=== PATIENT | male | born 1955 | race Caucasian/White ===

== ENCOUNTER → 2020-10-10 | Outpatient (CLI) | payer OTHER ==
[~2020-10-10] MED LIST: ALLOPURINOL100 MG PO; ALLOPURINOL300 MG PO; AMITRIPTYLINE H50 MG PO; ANORO ELLIPTA1 EACH INH; APRISO0.375 GM PO; ASPIR 8181 MG PO; AUGMENTIN 875-1 EACH PO; CARAFATE1 GM PO; CETIRIZINE HCL10 MG PO; COZAAR25 MG PO; ELAVIL 50 MG TA50 MG PO; ELIQUIS 5 MG TAB5 MG PO; FAMOTIDINE40 MG PO; GARLIC OIL1000 MG PO; GARLIC1000 MG PO; KETOROLAC TROME10 MG PO; LEVOTHYROXINE25 MC1 PO; LORATADINE10 MG PO; LOSARTAN POTASS25 MG PO; MELATONIN10 M2 PO; MELATONIN10 MG PO; MESALAMINE E0.375 GM PO; MESALAMINE4 GM/60 ML PR; PANTOPRAZOLE SO40 MG PO; PAROXETINE HCL20 MG PO; PAXIL20 MG PO; PREDNISONE 20 M20 MG PO; PROTONIX40 MG PO; RANITIDINE HCL150 M1 PO; RANITIDINE HCL150 MG PO; REQUIP1 MG PO; ROPINIROLE HCL1 MG PO; SIMVASTATIN20 MG PO; TRELEGY ELLIPT1 EACH INH; TRELEGY INH; VANCOMYCIN HCL125 MG PO; VENTOLIN HFA 66.7 GM INH; VICTOZA 1818 MG/3 ML SQ; VIT D3 PO; VITAMIN D32000 UNIT PO; VITAMIN E1000 UNI1 PO; ZITHROMAX250 MG PO; ZOCOR20 MG PO; ZYLOPRIM 100 M100 MG PO
[2020-10-11 10:13] LABS: HBSAG SCREEN Negative (Negative); HEP A AB, IGM Negative (Negative); HEP B CORE AB, IGM Negative (Negative); HEP C VIRUS AB <0.1 (0.0-0.9)
[2020-10-13 14:13] LABS: QUANTIFERON MITOGEN VALUE >10.00 IU/mL (.); QUANTIFERON TB1 AG VALUE 0.13 IU/mL (.); QUANTIFERON TB2 AG VALUE 0.09 IU/mL (.); QUANTIFERON-TB GOLD PLUS Negative (Negative)
== END ==
LOC: LAB 14:19
PROVIDERS: Internal Medicine Gastroenterology
DX: K51.30 Ulcerative (chronic) rectosigmoiditis without complications (principal); R94.5 Abnormal results of liver function studies
CPT/HCPCS: 80074

== ENCOUNTER 2020-10-19 15:45 | Inpatient (IN) | payer OTHER ==
[~2020-10-19] VITALS: Ht 170.2 cm; Wt 117.9 kg
[~2020-10-19 15:45] MED LIST changes: -AUGMENTIN 875-1 EACH PO; -ELIQUIS 5 MG TAB5 MG PO; -PREDNISONE 20 M20 MG PO; -TRELEGY ELLIPT1 EACH INH; -VANCOMYCIN HCL125 MG PO
[2020-10-19 17:38] LABS: HEMOGLOBIN 14.6 gm/dl (14.0-17.5); RED BLOOD COUNT 4.74 M/UL (4.20-5.50); WHITE BLOOD COUNT 21.7 K/UL (4.5-11.0)
[2020-10-19 18:02] LABS: BUN/CREATININE RATIO 13 (0-10)
[2020-10-20] MEDS ORDERED: TRELEGY ELLIPT1 EACH INH (00:05)
[2020-10-20] MEDS ORDERED: VENTOLIN HFA 66.7 GM INH (00:06)
[2020-10-20] MEDS ORDERED: ROPINIROLE HCL1 MG PO (00:58)
[2020-10-20 03:00] LABS: BORDETELLA PARAPERTUSSIS Not Detected (Not Detectd); BORDETELLA PERTUSSIS Not Detected (Not Detectd); CHLAMYDIA PNEUMONIAE Not Detected (Not Detectd); CORONAVIRUS HKU1 Not Detected (Not Detectd); CORONAVIRUS NL63 Not Detected (Not Detectd); CORONAVIRUS OC43 Not Detected (Not Detectd); CORONOAVIRUS 229E Not Detected (Not Detectd); HUMAN METAPNEUMOVIRUS Not Detected (Not Detectd); HUMAN RHINOVIRUS/ENTEROVIRUS Not Detected (Not Detectd); INFLUENZA A Not Detected (Not Detectd); INFLUENZA B Not Detected (Not Detectd); MYCOPLASMA PNEUMONIAE Not Detected (Not Detectd); PARAINFLUENZA VIRUS 1 Not Detected (Not Detectd); PARAINFLUENZA VIRUS 2 Not Detected (Not Detectd); PARAINFLUENZA VIRUS 3 Not Detected (Not Detectd); PARAINFLUENZA VIRUS 4 Not Detected (Not Detectd); RESPIRATORY SYNCYTIAL VIRUS Not Detected (Not Detectd)
[2020-10-20 04:01] LABS: SARS-CoV-2 NOT DETECTED (Not Detectd)
[2020-10-20 05:58] LABS: HEMOGLOBIN 12.3 gm/dl (14.0-17.5); RED BLOOD COUNT 4.12 M/UL (4.20-5.50); WHITE BLOOD COUNT 15.7 K/UL (4.5-11.0)
[2020-10-20 06:11] LABS: BUN/CREATININE RATIO 14 (0-10)
[2020-10-20] MEDS ORDERED: AUGMENTIN 875-1 EACH PO (12:14)
== END 2020-10-20 14:16 | disposition home or self-care (01) | DRG 862 ==
LOC: ER1 15:45 → CDU 21:10 → MED SURG 4 22:50
PROVIDERS: Physician Assistant Medical; ADMIT Internal Medicine
PROC: 0DBG8ZX Excision of Left Large Intestine, Via Natural or Artificial Opening Endoscopic, Diagnostic (ICD-10-PCS; principal; 2020-10-19)
PROC: 0DBF8ZX Excision of Right Large Intestine, Via Natural or Artificial Opening Endoscopic, Diagnostic (ICD-10-PCS; 2020-10-19)
DX: T81.44XA Sepsis following a procedure, initial encounter (principal); A41.9 Sepsis, unspecified organism; J69.0 Pneumonitis due to inhalation of food and vomit; J96.01 Acute respiratory failure with hypoxia; K51.30 Ulcerative (chronic) rectosigmoiditis without complications; Z68.41 Body mass index [BMI] 40.0-44.9, adult; Z20.822 Contact with and (suspected) exposure to COVID-19; J44.9 Chronic obstructive pulmonary disease, unspecified; K52.9 Noninfective gastroenteritis and colitis, unspecified; E66.01 Morbid (severe) obesity due to excess calories; G56.00 Carpal tunnel syndrome, unspecified upper limb; I10 Essential (primary) hypertension; M10.9 Gout, unspecified; E78.5 Hyperlipidemia, unspecified; N28.1 Cyst of kidney, acquired; Z98.52 Vasectomy status; Z80.1 Family history of malignant neoplasm of trachea, bronchus and lung; Z80.8 Family history of malignant neoplasm of other organs or systems; Z83.3 Family history of diabetes mellitus; Z87.442 Personal history of urinary calculi; Z87.891 Personal history of nicotine dependence; Z79.890 Hormone replacement therapy; Z79.899 Other long term (current) drug therapy; I25.2 Old myocardial infarction
CPT/HCPCS: 36415; 71045; 80048; 80053; 82550; 82553; 83605; 83690; 83874; 83880; 84484; 85025; 85379; 87040; 87633; 93005; 94640; 94664; 94760; 96365; 96372; 99285; G0378; J0456; J0696; J1650; J2920; J7030; J7040; Q9967; U0002; U0003

== ENCOUNTER → 2020-10-19 | Day surgery (SDC) | payer OTHER | END | disposition home or self-care (01) | LOC: OR 07:03 | DX: Z53.9 Procedure and treatment not carried out, unspecified reason (principal) | CPT/HCPCS: J7040 ==

== ENCOUNTER → 2020-11-22 | Outpatient (CLI) | payer OTHER ==
[~2020-11-22] MED LIST changes: +AUGMENTIN 875-1 EACH PO; +ELIQUIS 5 MG TAB5 MG PO; +PREDNISONE 20 M20 MG PO; +TRELEGY ELLIPT1 EACH INH; +VANCOMYCIN HCL125 MG PO
== END ==
LOC: RAD 11:21
DX: J18.9 Pneumonia, unspecified organism (principal)
CPT/HCPCS: 71046

== ENCOUNTER 2020-12-21 12:25 | Inpatient (IN) | payer OTHER ==
[~2020-12-21] VITALS: Ht 170.2 cm; Wt 113.6 kg
[~2020-12-21 12:25] MED LIST changes: -ELIQUIS 5 MG TAB5 MG PO; -PREDNISONE 20 M20 MG PO; -VANCOMYCIN HCL125 MG PO
[2020-12-21 13:17] LABS: HEMOGLOBIN 12.9 gm/dl (14.0-17.5); RED BLOOD COUNT 4.21 M/UL (4.20-5.50); WHITE BLOOD COUNT 16.1 K/UL (4.5-11.0)
[2020-12-21 14:05] LABS: BUN/CREATININE RATIO 8 (0-10)
[2020-12-21 21:21] LABS: HEMOGLOBIN 11.9 gm/dl (14.0-17.5)
[2020-12-22 02:36] LABS: HEMOGLOBIN 11.4 gm/dl (14.0-17.5); RED BLOOD COUNT 3.85 M/UL (4.20-5.50)
[2020-12-22 02:38] LABS: WHITE BLOOD COUNT 11.9 K/UL (4.5-11.0)
[2020-12-22 03:02] LABS: BUN/CREATININE RATIO 13 (0-10)
[2020-12-22 21:13] LABS: HEMOGLOBIN 11.1 gm/dl (14.0-17.5)
[2020-12-23 02:24] LABS: HEMOGLOBIN 10.8 gm/dl (14.0-17.5); RED BLOOD COUNT 3.72 M/UL (4.20-5.50); WHITE BLOOD COUNT 11.1 K/UL (4.5-11.0)
[2020-12-23 02:43] LABS: BUN/CREATININE RATIO 16 (0-10)
--- NOTE | 2020-12-23 11:00 | NUR ---
NO CHANGE FROM PREVIOUS ASSESSMENT
--- NOTE | 2020-12-23 16:00 | NUR ---
NO CHANGES FROM PREVIOUS ASSESSMENT
[2020-12-24 03:02] LABS: HEMOGLOBIN 10.3 gm/dl (14.0-17.5); RED BLOOD COUNT 3.46 M/UL (4.20-5.50)
[2020-12-24 03:04] LABS: WHITE BLOOD COUNT 7.9 K/UL (4.5-11.0)
[2020-12-24 03:28] LABS: BUN/CREATININE RATIO 17 (0-10)
[2020-12-24] MEDS ORDERED: VANCOMYCIN HCL125 MG PO (08:53)
[2020-12-24] MEDS ORDERED: PREDNISONE 20 M20 MG PO (08:53)
[2020-12-24] MEDS ORDERED: ELIQUIS 5 MG TAB5 MG PO (08:53)
== END 2020-12-24 11:15 | disposition home or self-care (01) | DRG 871 ==
LOC: ER1 12:25 → PROG CARE 16:57 → CDU 16:57 → PROG CARE 19:29
PROVIDERS: Physician Assistant; ADMIT Internal Medicine
DX: A41.9 Sepsis, unspecified organism (principal); I26.99 Other pulmonary embolism without acute cor pulmonale; J96.01 Acute respiratory failure with hypoxia; A04.72 Enterocolitis due to Clostridium difficile, not specified as recurrent; J44.1 Chronic obstructive pulmonary disease with (acute) exacerbation; K51.90 Ulcerative colitis, unspecified, without complications; K21.9 Gastro-esophageal reflux disease without esophagitis; I12.9 Hypertensive chronic kidney disease with stage 1 through stage 4 chronic kidney disease, or unspecified chronic kidney disease; Z98.890 Other specified postprocedural states; I25.2 Old myocardial infarction; Z82.3 Family history of stroke; Z82.49 Family history of ischemic heart disease and other diseases of the circulatory system; Z84.89 Family history of other specified conditions; I25.10 Atherosclerotic heart disease of native coronary artery without angina pectoris; F17.200 Nicotine dependence, unspecified, uncomplicated; N18.30 Chronic kidney disease, stage 3 unspecified; D50.9 Iron deficiency anemia, unspecified; Z20.822 Contact with and (suspected) exposure to COVID-19
CPT/HCPCS: ECHO; 0240U; 36415; 71045; 80048; 80053; 82550; 82553; 82728; 83540; 83550; 83874; 84484; 85014; 85018; 85025; 85027; 85379; 87324; 87449; 93005; 93306; 94640; 94664; 94760; 96374; 99285; J1650; J2920; J2930; J7120; Q9967

== ENCOUNTER → 2021-01-19 | Outpatient (CLI) | payer OTHER ==
[~2021-01-19] VITALS: Ht 170.2 cm; Wt 117.9 kg
[~2021-01-19] MED LIST changes: +ELIQUIS 5 MG TAB5 MG PO; +PREDNISONE 20 M20 MG PO; +VANCOMYCIN HCL125 MG PO
== END ==
LOC: OPSV 07:50
DX: K51.30 Ulcerative (chronic) rectosigmoiditis without complications (principal)
CPT/HCPCS: 96365; J3358; J7050

== ENCOUNTER 2021-02-15 18:42 | Emergency (ER) | payer OTHER ==
[2021-02-15 20:06] LABS: HEMOGLOBIN 11.1 gm/dl (14.0-17.5); RED BLOOD COUNT 3.88 M/UL (4.20-5.50); WHITE BLOOD COUNT 10.4 K/UL (4.5-11.0)
[2021-02-15 20:37] LABS: BUN/CREATININE RATIO 10 (0-10)
== END 2021-02-16 00:51 | disposition home or self-care (01) ==
LOC: ER1 18:42
PROVIDERS: Physician Assistant
DX: Z23 Encounter for immunization (principal); U07.1 COVID-19; I12.9 Hypertensive chronic kidney disease with stage 1 through stage 4 chronic kidney disease, or unspecified chronic kidney disease; N18.9 Chronic kidney disease, unspecified; Z86.711 Personal history of pulmonary embolism; Z79.01 Long term (current) use of anticoagulants
CPT/HCPCS: 71045; 80053; 82550; 82553; 83874; 83880; 84484; 85025; 93005; 94760; 99284; M0245

== ENCOUNTER 2021-04-19 22:35 | Emergency (ER) | payer OTHER ==
[2021-04-19 23:25] LABS: HEMOGLOBIN 10.6 gm/dl (14.0-17.5); RED BLOOD COUNT 4.12 M/UL (4.20-5.50); WHITE BLOOD COUNT 7.9 K/UL (4.5-11.0)
[2021-04-20] MEDS ORDERED: CEPHALEXIN500 MG PO (00:50)
== END 2021-04-20 01:00 | disposition home or self-care (01) ==
LOC: ER1 22:35
PROVIDERS: Physician Assistant
DX: S62.621B Displaced fracture of middle phalanx of left index finger, initial encounter for open fracture (principal); S62.611B Displaced fracture of proximal phalanx of left index finger, initial encounter for open fracture; I12.9 Hypertensive chronic kidney disease with stage 1 through stage 4 chronic kidney disease, or unspecified chronic kidney disease; N18.30 Chronic kidney disease, stage 3 unspecified; I25.2 Old myocardial infarction; W34.00XA Accidental discharge from unspecified firearms or gun, initial encounter
CPT/HCPCS: 12001; 71045; 73130; 80053; 85025; 93005; 96374; 96376; 99285; J0690

== ENCOUNTER → 2021-06-08 | Outpatient (CLI) | payer MEDICARE ==
[~2021-06-08] MED LIST changes: +CEPHALEXIN500 MG PO
== END ==
LOC: HEART 5 07:40
DX: R06.02 Shortness of breath (principal); R94.39 Abnormal result of other cardiovascular function study
CPT/HCPCS: 78452; A9502; J2785

== ENCOUNTER → 2021-07-20 | Outpatient (CLI) | payer MEDICARE ==
[2021-07-20 14:31] LABS: HEMOGLOBIN 12.3 gm/dl (14.0-17.5); RED BLOOD COUNT 4.5 M/UL (4.20-5.50); WHITE BLOOD COUNT 8.7 K/UL (4.5-11.0)
[2021-07-20 14:57] LABS: BUN/CREATININE RATIO 16 (0-10)
[2021-07-21 09:14] LABS: HCV AB 0.1 (0.0-0.9)
[2021-07-21 11:14] LABS: COMPLEMENT C3, SERUM 154 mg/dL (82-167); COMPLEMENT C4, SERUM 31 mg/dL (12-38); HBSAG SCREEN Negative (Negative); HEP B CORE AB, TOT Negative (Negative); RHEUMATOID ARTHRITIS FACTOR <10.0 IU/mL (0.0-13.9)
== END ==
LOC: LAB 13:19
PROVIDERS: Nurse Practitioner Family
DX: Z00.00 Encounter for general adult medical examination without abnormal findings (principal); D89.9 Disorder involving the immune mechanism, unspecified; M79.642 Pain in left hand; M79.641 Pain in right hand; M25.50 Pain in unspecified joint; R76.8 Other specified abnormal immunological findings in serum; I77.6 Arteritis, unspecified; M19.041 Primary osteoarthritis, right hand; M19.042 Primary osteoarthritis, left hand; Z11.59 Encounter for screening for other viral diseases; Z79.899 Other long term (current) drug therapy
CPT/HCPCS: 36415; 73130; 80053; 81001; 82570; 83520; 84156; 85025; 85652; 86140; 86160; 86162; 86200; 86431; 86704; 86803; 87340

== ENCOUNTER → 2021-07-28 | Outpatient (CLI) | payer MEDICARE | LOC: LAB 06:22 | DX: Z00.00 Encounter for general adult medical examination without abnormal findings (principal); M25.50 Pain in unspecified joint; I77.6 Arteritis, unspecified; Z11.59 Encounter for screening for other viral diseases; Z79.899 Other long term (current) drug therapy | CPT/HCPCS: 36415 ==

== ENCOUNTER → 2021-08-02 | Outpatient (CLI) | payer MEDICARE | LOC: KOH-I 15:30 | DX: J32.2 Chronic ethmoidal sinusitis (principal) | CPT/HCPCS: 70486 ==